=== PATIENT | female | born 1970 | race Caucasian/White ===

== ENCOUNTER 2022-12-30 06:41 | Day surgery (SDC) | payer MEDICAID ==
[~2022-12-30] VITALS: Ht 162.6 cm; Wt 90.7 kg
[2022-12-30] MEDS ORDERED: ELAVIL25 M1 PO (07:44)
[2022-12-30] MEDS ORDERED: METHOCARBAMOL500 MG PO (07:46)
[2022-12-30] MEDS ORDERED: NEURONTIN600 MG PO (07:46)
[2022-12-30] MEDS ORDERED: PERCOCET 10/31 COMBO PO (07:47)
[2022-12-30] MEDS ORDERED: NORMODYNE/TRAN100 MG PO (07:48)
[2022-12-30 09:32] VITALS: BP 135/90
== END 2022-12-30 09:30 | disposition home or self-care (01) ==
LOC: ORM 06:41
PROVIDERS: ATTEND Physical Medicine & Rehabilitation Pain Medicine
DX: G56.41 Causalgia of right upper limb (principal); M79.601 Pain in right arm
CPT/HCPCS: Q9967

== ENCOUNTER → 2022-12-30 | Day surgery (SDC) | payer MEDICAID ==
[~2022-12-30] MED LIST: ELAVIL25 M1 PO; METHOCARBAMOL500 MG PO; NEURONTIN600 MG PO; NORMODYNE/TRAN100 MG PO; PERCOCET 10/31 COMBO PO
[2022-12-30 07:10] VITALS: BP 162/96
== END | disposition home or self-care (01) ==
LOC: ORM 06:20
PROVIDERS: ATTEND Physical Medicine & Rehabilitation Pain Medicine
DX: Z01.818 Encounter for other preprocedural examination (principal); Z11.59 Encounter for screening for other viral diseases; G89.4 Chronic pain syndrome